=== PATIENT | male | born 1975 | race Caucasian/White ===

== ENCOUNTER → 2020-12-11 | Outpatient (CLI) | payer MEDICARE, OTHER ==
[~2020-12-11] MED LIST: ALENDRONATE SOD10 MG PO; BUSPIRONE HCL5 MG PO; CIPRO500 MG PO; CLEOCIN HCL300 MG PO; COZAAR50 MG PO; DICLOFENAC; ECOTRIN81 MG PO; FLONASE ALLER15.8 ML; IBUPROFEN800 MG PO; KEFLEX500 MG PO; LORTAB 7.5-3251 EACH PO; NABUMETONE500 MG PO; NAPROXEN500 MG PO; PERCOCET 5-3251 EACH PO; PROTONIX 40 MG40 M1 PO; VITAMIN C500 M4 PO; VITAMIN D PO; ZOLOFT PO; ZOLOFT100 MG PO; ZYRTEC10 MG PO
== END ==
LOC: KOH-I 11-17 11:00
DX: S92.002K Unspecified fracture of left calcaneus, subsequent encounter for fracture with nonunion (principal); Z98.890 Other specified postprocedural states; X58.XXXD Exposure to other specified factors, subsequent encounter
CPT/HCPCS: 73700

== ENCOUNTER → 2021-03-29 | Outpatient (CLI) | payer MEDICARE, OTHER | LOC: KOH-I 09:53 | DX: S92.002A Unspecified fracture of left calcaneus, initial encounter for closed fracture (principal) | CPT/HCPCS: 73630; 73650 ==

== ENCOUNTER → 2021-04-22 | Outpatient (CLI) | payer MEDICARE, OTHER | LOC: KOH-I 09:07 | DX: T84.098A Other mechanical complication of other internal joint prosthesis, initial encounter (principal); T84.84XA Pain due to internal orthopedic prosthetic devices, implants and grafts, initial encounter | CPT/HCPCS: 73700 ==

== ENCOUNTER → 2021-05-06 | Outpatient (CLI) | payer MEDICARE, OTHER ==
[2021-05-06 09:26] LABS: HEMOGLOBIN 14.5 gm/dl (14.0-17.5); RED BLOOD COUNT 4.85 M/UL (4.20-5.50); WHITE BLOOD COUNT 8.5 K/UL (4.5-11.0)
[2021-05-06 09:46] LABS: BUN/CREATININE RATIO 14 (0-10)
== END ==
LOC: OPSV2 05-04 09:00
PROVIDERS: Podiatrist Foot & Ankle Surgery
DX: Z01.812 Encounter for preprocedural laboratory examination (principal); T84.84XA Pain due to internal orthopedic prosthetic devices, implants and grafts, initial encounter
CPT/HCPCS: 80048; 85027

== ENCOUNTER → 2021-05-14 | Day surgery (SDC) | payer MEDICARE, OTHER | END | disposition home or self-care (01) | LOC: OR 06:36 | DX: T84.84XA Pain due to internal orthopedic prosthetic devices, implants and grafts, initial encounter (principal); S92.06 Intraarticular fracture of calcaneus; M19.072 Primary osteoarthritis, left ankle and foot; I10 Essential (primary) hypertension; K21.9 Gastro-esophageal reflux disease without esophagitis; F41.9 Anxiety disorder, unspecified; F32.9 Major depressive disorder, single episode, unspecified | CPT/HCPCS: 73650; 76000; J0690; J1100; J2001; J2250; J2405; J2704; J2710; J2795; J3010; J7120 ==

== ENCOUNTER → 2021-07-26 | Outpatient (CLI) | payer MEDICARE, OTHER | LOC: KOH-I 13:45 | DX: M25.572 Pain in left ankle and joints of left foot (principal); M79.672 Pain in left foot | CPT/HCPCS: 73610; 73650 ==